=== PATIENT | male | born 1960 | race African-American/Black ===

== ENCOUNTER 2021-12-27 13:04 | Inpatient (IN) | payer OTHER, SELFPAY ==
--- NOTE | 2021-12-27 13:51 | RAD REPORT ---
EXAM DESCRIPTION: CT - Head Brain Wo Cont - 12/27/2021 1:46 pm CLINICAL HISTORY: left arm paresthesia Headache, drowsiness, CVA symptomology. COMPARISON: No comparisons TECHNIQUE: All CT scans are performed using dose optimization technique as appropriate and may inclu de automated exposure control or mA/KV adjustment according to patient size. FINDINGS: No intracranial hemorrhage, hydrocephalus or extra-axial fluid collection.Mild brain atrop hy.No areas of brain edema or evidence of midline shift. The paranasal sinuses and mastoids are clear. The calvarium is intact. IMPRESSION: No acute intracranial abnormality.
[2021-12-27 14:14] LABS: Absolute Lymphocytes (CBC) 1.6 K/uL (0.7-4.9); Lymphocytes % 23.3 % (15.3-44.8); MCV 85.6 fL (80-100); MPV 7.6 fL (7.6-11.3)
[2021-12-27 14:16] LABS: Protime INR 1.04
--- NOTE | 2021-12-27 14:24 | RAD REPORT ---
EXAM DESCRIPTION: RAD - Chest Single View - 12/27/2021 1:56 pm CLINICAL HISTORY: CHEST PAIN Chest pain. COMPARISON: No comparisons FINDINGS: Portable technique limits examination quality. The lungs are grossly clear. The heart is normal in size. No displaced fractures. IMPRESSION: No acute intrathoracic process suspected.
[2021-12-27 14:36] LABS: SARS-CoV-2 Antigen Rapid Res Negative (Negative)
[2021-12-27 14:42] LABS: Magnesium 2.2 mg/dL (1.8-2.4); Potassium 3.1 mmol/L (3.5-5.1); Troponin High Sensitivity 11.1 pg/mL (<58.9)
--- NOTE | 2021-12-27 14:49 | ER ---
Nurse's Notes [facility] Name: Alberto Curtis Age: 61 yrs Sex: Male : 1960 Arrival Date: 12/27/2021 Time: 13:12 Bed 24 Private MD: Diagnosis: Abnormal EKG;Hypokalemia Presentation: 12/27 13:22 Chief complaint: Patient states: I woke up with with tingling and numbness down my left bm7 arm and I went to the spray foam installer and they said that my EKG was abnormal and to come straight to the ER. Coronavirus screen: At this time, the client does not indicate any symptoms associated with coronavirus-19. Ebola Screen: No symptoms or risks identified at this time. Initial Sepsis Screen: Does the patient meet any 2 criteria? No. Patient's initial sepsis screen is negative. Does the patient have a suspected source of infection? No. Patient's initial sepsis screen is negative. Risk Assessment: Do you want to hurt yourself or someone else? Patient reports no desire to harm self or others. Onset of symptoms was December 27, 2021. 13:22 Method Of Arrival: Ambulatory 7 13:22 Acuity: CAT[place] 2 bm7 Triage Assessment: 13:24 General: Appears in no apparent distress. comfortable. General: Behavior is calm, bm7 cooperative, appropriate for age. Pain: Denies pain. EENT: No deficits noted. No signs and/or symptoms were reported regarding the EENT system. Cardiovascular: No deficits noted. Chest pain is denied. Respiratory: No deficits noted. Denies shortness of breath. GI: No deficits noted. No signs and/or symptoms were reported involving the gastrointestinal system. : No deficits noted. No signs and/or symptoms were reported regarding the genitourinary system. Derm: No deficits noted. No signs and/or symptoms reported regarding the dermatologic system. Musculoskeletal: No deficits noted. No signs and/or symptoms reported regarding the musculoskeletal system. Historical: - Allergies: 13:24 Iodine; bm7 - Home Meds: 13:24 amlodipine 5 mg tab 1 tab once daily [Active]; hydrochlorothiazide 25 mg Oral tab 1 tab bm7 2 times per day [Active]; clonidine HCl 0.1 mg Oral Tb12 1 tab 2 times per day [Active]; - PMHx: 13:24 Hypertensive disorder; bm7 - Immunization history:: Adult Immunizations up to date. - Social history:: Smoking status: Patient denies any tobacco usage or history of. Screenin:05 Abuse screen: Denies threats or abuse. Nutritional screening: No deficits noted. ll1 Tuberculosis screening: No symptoms or risk factors identified. Fall Risk IV access (20 points). Total Martins Fall Scale indicates No Risk (0-24 pts). Assessment: 15:35 Reassessment: No changes from previously documented assessment. Patient and/or family ll1 updated on plan of care and expected duration. Pain level reassessed. Patient is alert, oriented x 3, equal unlabored respirations, skin warm/dry/pink. Patient denies pain at this time. Patient states feeling better. 16:30 Reassessment: No changes from previously documented assessment. Patient and/or family ll1 updated on plan of care and expected duration. Pain level reassessed. Patient is alert, oriented x 3, equal unlabored respirations, skin warm/dry/pink. 17:30 Reassessment: No changes from previously documented assessment. Patient and/or family ll1 updated on plan of care and expected duration. Pain level reassessed. Patient is alert, oriented x 3, equal unlabored respirations, skin warm/dry/pink. 17:50 Reassessment: No changes from previously documented assessment. Patient and/or family ll1 updated on plan of care and expected duration. Pain level reassessed. Patient is alert, oriented x 3, equal unlabored respirations, skin warm/dry/pink. Vital Signs: 13:22 BP 158 / 85; Pulse 70; Resp 16; Temp 97.9(TE); Pulse Ox 98% on R/A; Weight 104.33 kg bm7 (R); Height 5 ft. 8 in. (172.72 cm); Pain 0/10; 15:45 BP 155 / 91; Pulse 68; Pulse Ox 99% ; ll1 16:45 BP 168 / 90; Pulse 70; Pulse Ox 98% ; ll1 17:30 BP 120 / 85; Pulse 67; ll1 18:02 BP 138 / 96; Pulse 63; Resp 16; Pulse Ox 98% ; ll1 19:06 BP 151 / 83; Pulse 63; Resp 18; Pulse Ox 99% on R/A; kr3 13:22 Body Mass Index 34.97 (104.33 kg, 172.72 cm) bm7 ED Course: 13:12 Patient arrived in ED. rg4 13:22 [facility]C [facility] kb 13:22 Davon Lawton MD is Attending Physician. kb 13:24 Triage completed. bm7 13:24 Arm band placed on right wrist. bm7 13:36 Deidra Stoll, RN is Primary Nurse. kr3 13:47 CT Head Brain wo Cont In Process Unspecified. EDMS 13:58 XRAY Chest (1 view) In Process Unspecified. EDMS 14:07 Inserted saline lock: 20 gauge in right antecubital area, using aseptic technique. kr3 Blood collected. 14:48 Alma Delia Rice MD is Hospitalizing Provider. kb 15:30 Patient placed in an exam room, on a stretcher. ll1 15:30 Patient has correct armband on for positive identification. Bed in low position. Call ll1 light in reach. Client placed on continuous cardiac and pulse oximetry monitoring. NIBP monitoring applied. alarm security or surveillance monitor on. 17:46 Troponin High Sensitivity Sent. ll1 19:07 No provider procedures requiring assistance completed. IV discontinued, intact, kr3 bleeding controlled, No redness/swelling at site. Pressure dressing applied. Administered Medications: 03:15 Drug: Potassium Chloride 40 mEq Route: PO; kr3 17:58 Follow up: Response: No adverse reaction ll1 Medication: 18:06 VIS not applicable for this client. ll1 Outcome: 14:49 Decision to Hospitalize by Provider. kb 18:13 Discharge ordered by MD. kb 19:07 Discharged to home kr3 19:07 Condition: stable 19:07 Discharge instructions given to patient, Instructed on discharge instructions, follow up and referral plans. Demonstrated understanding of instructions, follow-up care. 19:07 Patient left the ED. kr3 Signatures: Dispatcher [employer] EDMS Sarah Ramos FNP-C FNP-Meliza Chandler rg4 Gaby Singh RN RN ll1 Ruthann Montoya, RN RN bm7 Deidra Stoll, MARLENA RN kr3 Corrections: (The following items were deleted from the chart) 18:07 17:45 BP 168 / 90; Pulse 70bpm; Pulse Ox 98%; ll1 ll1
--- NOTE | 2021-12-27 14:49 | EDPHYS ---
Physician Documentation [facility] Name: Alberto Curtis Age: 61 yrs Sex: Male : 1960 Arrival Date: 12/27/2021 Time: 13:12 Bed 24 Private MD: ED Physician Davon Lawton HPI: 12/28 01:02 This 61 yrs old Black Male presents to ER via Ambulatory with complaints of Abnormal kb EKG, Arm Pain. 01:02 Patient reports tingling to left arm for 2 weeks. States he went to Dr. Rojas's kb office today and was seen by Dr. Barajas who did an EKG and said it was abnormal. Sent patient to the ER to rule out heart attack and stroke per patient.. Onset: The symptoms/episode began/occurred 2 week(s) ago. Severity of symptoms: At their worst the symptoms were very mild in the emergency department the symptoms are unchanged. The patient has not experienced similar symptoms in the past. The patient has been recently seen by a physician:. Historical: - Allergies: 12/27 13:24 Iodine; bm7 - Home Meds: 13:24 amlodipine 5 mg tab 1 tab once daily [Active]; hydrochlorothiazide 25 mg Oral tab 1 tab bm7 2 times per day [Active]; clonidine HCl 0.1 mg Oral Tb12 1 tab 2 times per day [Active]; - PMHx: 13:24 Hypertensive disorder; bm7 - Immunization history:: Adult Immunizations up to date. - Social history:: Smoking status: Patient denies any tobacco usage or history of. ROS: 12/28 01:02 Constitutional: Negative for fever, chills, and weight loss. kb Neuro: Positive for tingling, of the left arm. All other systems are negative. Exam: 12/27 13:30 Constitutional: This is a well developed, well nourished patient who is awake, alert, kb and in no acute distress. Head/Face: Normocephalic, atraumatic. ENT: Moist Mucous membranes Chest/axilla: Normal chest wall appearance and motion. Cardiovascular: Regular rate and rhythm with a normal S1 and S2. No gallops, murmurs, or rubs. No pulse deficits. Respiratory: Respirations even and unlabored. No increased work of breathing. Talking in full sentences Abdomen/GI: Soft, non-tender. No distention Skin: Warm, dry with normal turgor. Normal color. MS/ Extremity: Pulses equal, no cyanosis. Neurovascular intact. Full, normal range of motion. Neuro: Awake and alert, GCS 15, oriented to person, place, time, and situation. Moves all extremities. Normal gait. Psych: Awake, alert, with orientation to person, place and time. Behavior, mood, and affect are within normal limits. ECG was reviewed by the Attending Physician. Vital Signs: 13:22 BP 158 / 85; Pulse 70; Resp 16; Temp 97.9(TE); Pulse Ox 98% on R/A; Weight 104.33 kg bm7 (R); Height 5 ft. 8 in. (172.72 cm); Pain 0/10; 15:45 BP 155 / 91; Pulse 68; Pulse Ox 99% ; ll1 16:45 BP 168 / 90; Pulse 70; Pulse Ox 98% ; ll1 17:30 BP 120 / 85; Pulse 67; ll1 18:02 BP 138 / 96; Pulse 63; Resp 16; Pulse Ox 98% ; ll1 19:06 BP 151 / 83; Pulse 63; Resp 18; Pulse Ox 99% on R/A; kr3 13:22 Body Mass Index 34.97 (104.33 kg, 172.72 cm) bm7 MDM: 13:22 Patient medically screened. kb 14:44 Data reviewed: vital signs, nurses notes. Data interpreted: Pulse oximetry: on room air kb is 98 %. Interpretation: normal. Counseling: I had a detailed discussion with the patient and/or guardian regarding: the historical points, exam findings, and any diagnostic results supporting the discharge/admit diagnosis, lab results, radiology results, the need for further work-up and treatment in the hospital. Physician consultation: Ally BURK was contacted at 14:48, regarding admission, to the telemetry unit. patient's condition, and will see patient in ED. 16:59 ED course: Dr Barajas evaluated pt in ED. Decided to have repeat troponin done in ED kb since first was negative. If second is negative as well, recommends discharging the patient and he can have an outpatient stress test. Pt has stress test scheduled for 01/04/22 already. 12/27 13:29 Order name: Basic Metabolic Panel; Complete Time: 14:43 kb 12/27 13:29 Order name: CBC with Diff; Complete Time: 14:23 kb 12/27 13:29 Order name: Magnesium; Complete Time: 14:43 kb 12/27 13:29 Order name: NT PRO-BNP; Complete Time: 14:43 kb 12/27 13:29 Order name: PT-INR; Complete Time: 14:23 kb 12/27 13:29 Order name: Troponin HS; Complete Time: 14:43 kb 12/27 13:29 Order name: XRAY Chest (1 view); Complete Time: 14:38 kb 12/27 13:29 Order name: EKG; Complete Time: 13:29 kb 12/27 13:29 Order name: Cardiac monitoring; Complete Time: 16:31 kb 12/27 13:29 Order name: CT Head Brain wo Cont; Complete Time: 13:52 kb 12/27 13:30 Order name: SARS RAPID; Complete Time: 14:38 kb 12/27 16:59 Order name: Troponin High Sensitivity kb 12/27 18:08 Order name: Troponin High Sensitivity; Complete Time: 18:11 EDMS 12/27 13:29 Order name: EKG - Nurse/Tech; Complete Time: 13:31 kb 12/27 13:29 Order name: IV Saline Lock; Complete Time: 14:08 kb 12/27 13:29 Order name: Labs collected and sent; Complete Time: 14:08 kb 12/27 13:29 Order name: O2 Per Protocol; Complete Time: 13:31 kb 12/27 13:29 Order name: O2 Sat Monitoring; Complete Time: 13:31 kb EC:30 Rate is 63 beats/min. Rhythm is regular. QRS [place] is Normal. CT interval is normal at kb 246 msec. QRS interval is normal at 82 msec. QT interval is normal at 429 msec. Administered Medications: 03:15 Drug: Potassium Chloride 40 mEq Route: PO; kr3 17:58 Follow up: Response: No adverse reaction ll1 Disposition: 12/28 08:22 Co-signature as Attending Physician, Davon Lawton MD. rn Disposition Summary: 12/27/21 18:13 Discharge Ordered Location: Home(12/27/21 18:13) kb Condition: Stable(12/27/21 18:13) kb Diagnosis - Abnormal EKG kb - Hypokalemia(12/27/21 18:13) kb Followup: kb - With: Emergency Department - When: As needed - Reason: Worsening of condition Followup: kb - With: Private Physician - When: 2 - 3 days - Reason: Recheck today's complaints, Continuance of care, Re-evaluation by your physician Discharge Instructions: - Discharge Summary Sheet kb - Nonspecific Chest Pain, Adult, [id number] kb - Hypokalemia kb Forms: - Medication Reconciliation Form kb - Thank You Letter kb - Antibiotic Education kb - Prescription Opioid Use kb Signatures: Dispatcher [employer] EDMS Sarah Ramos, ELECTRICIAN MANAGER-C ELECTRICIAN MANAGER-Ckb Ally Crawford, ELECTRICIAN MANAGER-C ELECTRICIAN MANAGER-Csnw Davon Lawton MD MD rn Ruthann Montoya, RN RN bm7 Deidra Stoll RN RN kr3 Gaby Singh RN ll1 Corrections: (The following items were deleted from the chart) 12/27 16:21 14:49 Chest pain, unspecified kb kb 18:13 14:49 Observation kb kb 18:13 14:49 Alma Delia Rice kb kb 18:13 14:49 Telemetry/MedSurg (observation) kb kb 18:13 14:49 Stable kb kb 18:13 14:49 new kb kb 18:13 14:49 are unchanged kb kb 18:13 14:49 Standard kb kb 18:13 14:49 kb kb 18:13 16:21 Abnormal EKG kb kb 18:13 16:21 Hypokalemia kb kb
[2021-12-27] MEDS ORDERED: POTASSIUM CL SA 10 MEQ TAB PO ONE (15:28)
[2021-12-27] MEDS ORDERED: HYDROCODONE/APAP 5/325 MG TAB PO PRN (16:27)
[2021-12-27] MEDS ORDERED: ACETAMINOPHEN 500 MG TAB PO PRN (16:27)
[2021-12-27] MEDS ORDERED: DIAZEPAM 5 MG TABLET PO ONE (16:31)
[2021-12-27] MEDS ORDERED: cloNIDine HCL 0.1 MG TAB PO SCH (21:00)
[2021-12-28] MEDS ORDERED: ASPIRIN EC 81 MG TAB PO SCH (09:00)
[2021-12-28] MEDS ORDERED: AMLODIPINE 10 MG TAB PO SCH (09:00)
[2021-12-28] MEDS ORDERED: hydroCHLOROthiazide 25 MG TAB PO SCH (09:00)
[2021-12-28] MEDS ORDERED: carvediloL 25 MG TAB PO SCH (09:00)
[2021-12-28] MEDS ORDERED: BENAZEPRIL 20 MG TAB PO SCH (09:00)
[2021-12-29 09:27] VITALS: TEMP 97.9
[2021-12-29 09:40] VITALS: BP 151/83; O2SAT 99
--- NOTE | 2021-12-30 14:14 | EKG ---
Test Date: 2021-12-27 Test Time: 13:25:10 File Clerk Data Entry: ERIK MEASUREMENT RESULTS: Intervals: Rate: 63 TX: 246 QRSD: 82 QT: 420 QTc: 429 [place]: P: 30 TX: 246 QRS: 40 T: -32 INTERPRETIVE STATEMENTS: Sinus rhythm with 1st degree AV block T wave abnormality, consider inferior ischemia T wave abnormality, consider anterolateral ischemia Abnormal ECG No previous ECG available for comparison Electronically Signed On 12-30-21 14:10:18 CDT by Thai Barajas
== END 2021-12-27 19:00 | disposition home health service (06) | DRG 316 ==
LOC: ER 13:04 → ERHOLD 16:25
PROVIDERS: ADMIT Hospitalist; ATTEND Hospitalist
DX: R94.31 Abnormal electrocardiogram [ECG] [EKG] (principal); E87.6 Hypokalemia; Z91.048 Other nonmedicinal substance allergy status; Z79.899 Other long term (current) drug therapy; Z20.822 Contact with and (suspected) exposure to COVID-19
CPT/HCPCS: 36415; 70450; 71045; 80048; 83735; 83880; 84484; 85025; 85610; 87811; 93005; 99284

== ENCOUNTER 2022-04-30 06:49 | Day surgery (SDC) | payer OTHER ==
[2022-04-24 10:07] LABS: Hematocrit 42.1 % (39.6-49.0); Lymphocytes % 25.5 % (15.3-44.8); MCV 86.8 fL (80-100); MPV 7.9 fL (7.6-11.3); RBC Red Blood Cell Count 4.85 M/uL (4.33-5.43)
[2022-04-24 10:08] LABS: Absolute Lymphocytes (CBC) 1.6 K/uL (0.7-4.9)
[2022-04-30] MEDS ORDERED: Ringers Lactate 1,000 ML IV ONE (07:12)
[2022-04-30] MEDS ORDERED: CEFAZOLIN SODIUM 1 GM/VIAL ONE (07:12)
[2022-04-30 07:46] LABS: Potassium 3.7 mmol/L (3.5-5.1)
[2022-04-30] MEDS ORDERED: BUPIVACAINE 0.5% PF 10 ML VIAL ONE (08:17)
[2022-04-30] MEDS ORDERED: MIDAZOLAM HCL 2 MG/2 ML INJ ONE (08:40)
[2022-04-30] MEDS ORDERED: FENTANYL CITR 100 MCG/2 ML ONE (08:40)
[2022-04-30] MEDS ORDERED: propofoL 200 MG/20 ML VIAL IV ONE (08:40)
[2022-04-30] MEDS ORDERED: NS 0.9% VIAL 10 ML ONE (08:41)
[2022-04-30] MEDS ORDERED: LIDOCAINE 2% MPF 5 ML VIAL ONE (08:41)
[2022-04-30] MEDS ORDERED: KETOROLAC 30 MG/ML INJ ONE (08:49)
[2022-04-30] MEDS ORDERED: ONDANSETRON 4 MG/2 ML VIAL ONE (08:55)
[2022-04-30] MEDS ORDERED: Mastisol Adhesive Liq ONE (09:05)
--- NOTE | 2022-04-30 09:13 | P.OP ---
Date of Service: 04/30/22 Preop diagnosis: Right knee mass Postop diagnosis: Same Procedure performed: Excision right knee mass 4 x 2 cm with layered closure Surgeon: Mat Gregory MD Acquisition Cost Estimator: None Estimated blood loss: Minimal Specimen: Right knee mass Findings: A 2 cm hard nodule Anesthesia: General Complications: None Drains: None Fluids and blood products: Nonapplicable Disposition: Recovery room Operative note: Patient brought to the OR and placed in supine position. General anesthesia begun. Patient prepped and draped in usual sterile fashion. Marcaine 0.5% infiltrated locally. Then approximately a 4 cm incision made over the right superior medial knee overlying a hard nodule. Subcutaneous tissue divided and deep in the subcutaneous tissue a 2 cm hard nodule excised. Wound irrigated and bleeding controlled with cautery. 3-0 chromic used to approximate subcutaneous tissue and close skin. Sterile dressing applied. Patient awakened taken recovery room in good general condition. CC: Dr. Carlson's office
[2022-04-30] MEDS ORDERED: CODEINE 30MG/APAP 300MG TAB PO PRN (09:16)
[2022-04-30 11:07] VITALS: BP 131/84; TEMP 96.1; O2SAT 98
== END 2022-04-30 10:25 | disposition home or self-care (01) ==
LOC: OR 06:49
PROVIDERS: ATTEND Surgery
PROC: 0JBN0ZZ Excision of Right Lower Leg Subcutaneous Tissue and Fascia, Open Approach (ICD-10-PCS; principal; 2022-04-30 08:00)
DX: D21.22 Benign neoplasm of connective and other soft tissue of left lower limb, including hip (principal); I10 Essential (primary) hypertension; Z91.09 Other allergy status, other than to drugs and biological substances
CPT/HCPCS: 11404; 85025; 80048; 36415 ×2; 88305; J2704; J2001; J2250; J3010; A4216; J7120; J2405; J0690